=== PATIENT | male | born 1980 | race Asian ===

== ENCOUNTER 2020-04-10 21:07 | Emergency (ER) | payer OTHER ==
[~2020-04-10] VITALS: Ht 182.9 cm; Wt 94.3 kg
[2020-04-10 21:59] LABS: PLATELET COUNT 282 K/uL (142-355)
[2020-04-10 22:03] LABS: POTASSIUM 3.8 mmol/L (3.6-5.2)
[2020-04-10 23:00] VITALS: BP 120/82; TEMP 98.3
== END 2020-04-10 23:00 | disposition home or self-care (01) ==
LOC: ED 21:07
PROVIDERS: Emergency Medicine
DX: M67.442 Ganglion, left hand (principal)
CPT/HCPCS: 36415; 80053; 84550; 85027; 85651; 96372; 99283; J1885

== ENCOUNTER 2022-04-27 22:17 | Emergency (ER) | payer OTHER ==
[~2022-04-27] VITALS: Ht 182.9 cm; Wt 88.5 kg
[2022-04-27 23:22] LABS: PLATELET COUNT 265 K/uL (142-355)
[2022-04-27 23:33] LABS: POTASSIUM 3.7 mmol/L (3.6-5.2)
[2022-04-28 00:10] VITALS: BP 131/72; TEMP 98.4
== END 2022-04-28 00:15 | disposition home or self-care (01) ==
LOC: ED 22:17
PROVIDERS: Family Medicine
DX: L03.114 Cellulitis of left upper limb (principal); F15.10 Other stimulant abuse, uncomplicated
CPT/HCPCS: 80053; 82550; 85027; 86140; 87040; 96365; 96375; 99284; J1885; J2930; J3490